=== PATIENT | male | born 1960 | race Caucasian/White ===

== ENCOUNTER 2023-12-04 16:03 | Inpatient (IN) | payer MEDICARE, OTHER ==
[~2023-12-04] VITALS: Ht 182.9 cm; Wt 92.5 kg
[2023-12-04 16:16] VITALS: BP 155/104; PULSE 121; RESP 26; TEMP 97.1; O2SAT 98
[2023-12-04] MEDS: NACL 0.9% 1,000 ML IV ONE (17:11)
[2023-12-04 17:23] LABS: BASOPHILS # (AUTO) 0.1 K/uL (0.00-0.22); BASOPHILS % (AUTO) 0.6 % (0.0-2.0); EOSINOPHILS # (AUTO) 0.1 K/uL (0-0.4); EOSINOPHILS % (AUTO) 0.6 % (0.0-4.0); HEMATOCRIT 49.9 % (36-52); HEMOGLOBIN 16.8 g/dL (12.0-18.0); LYMPHOCYTES # (AUTO) 2.5 K/uL (2.0-11.5); LYMPHOCYTES % (AUTO) 19.3 % (20.5-51.1); MEAN CORPUSCULAR HEMOGLOBIN 33 pg (27-31); MEAN CORPUSCULAR HGB CONC 34 g/dL (33-37); MEAN CORPUSCULAR VOLUME 97.2 fL (80-94); MONOCYTES # (AUTO) 1.2 K/uL (0.8-1.0); MONOCYTES % (AUTO) 9.2 % (1.7-9.3); NEUTROPHILS % (AUTO) 70.3 % (42.2-75.2); PLATELET COUNT (AUTO) 342 K/uL (140-450); RED BLOOD CELL COUNT(AUTO) 5.14 MIL/uL (4.20-6.10); RED CELL DISTRIBUTION WIDTH 13.8 % (11.6-13.7); WHITE BLOOD COUNT (AUTO) 12.8 K/uL (4.8-10.8)
[2023-12-04 17:36] LABS: CALCIUM 9.6 mg/dL (8.5-10.1); CARBON DIOXIDE 22.1 mmol/L (21-32); CREATININE 1.7 mg/dL (0.6-1.3); POTASSIUM 5.1 mmol/L (3.5-5.1)
[2023-12-04 17:49] LABS: LACTIC ACID 2.8 mmol/L (0.4-2.0)
[2023-12-04 17:52] LABS: MAGNESIUM 1.9 mg/dL (1.8-2.4); PHOSPHORUS 5.1 mg/dL (2.5-4.9); THYROID STIMULATING HORMONE 2.51 uIU/mL (0.34-3.74)
[2023-12-04 18:18] LABS: INR 1.34 (0.8-1.2); PARTIAL THROMBOPLASTIN TIME 23.9 secs (22-35.6); PROTHROMBIN TIME 13.9 secs (10.8-13.4)
[2023-12-04 18:39] LABS: FLU A ANTIGEN negative (NEGATIVE); FLU B ANTIGEN NEGATIVE (NEGATIVE)
[2023-12-04] MEDS: AZITHROMYCIN 500 MG in DEXTROSE 5% 250 ML IV ONE (20:45)
[2023-12-04] MEDS ORDERED: ACETAMINOPHEN 325 MG TAB PO PRN (21:45)
[2023-12-04] MEDS ORDERED: HYDROcodone/APAP 5/325 MG 1 TAB TAB PO PRN (21:45)
[2023-12-04] MEDS ORDERED: ONDANSETRON 4 MG/2 ML VIAL IVP PRN (21:45)
[2023-12-04] MEDS ORDERED: AZITHROMYCIN 500 MG INJ VIAL IV ONE (21:56)
[2023-12-04] MEDS ORDERED: cefTRIAXone 1,000 MG VIAL ONE (21:56)
[2023-12-04] MEDS: NACL 0.9% 1,000 ML IV SCH (22:22)
[2023-12-04] MEDS ORDERED: ALBUTEROL SULFATE/IPRATROPIU 3 ML SOL IH ONE (23:58)
[2023-12-05] VITALS (30 sets, daily range): BP systolic 99–131; BP diastolic 64–86; PULSE 59–126; RESP 13–29; TEMP 97.2–97.6; O2SAT 88–100
[2023-12-05] MEDS: NACL 0.9% 500 ML IV ONE
[2023-12-05] MEDS: ALBUTEROL SULFATE/IPRATROPIU 3 ML SOL IH ONE (00:03)
[2023-12-05] MEDS ORDERED: NOREPINEPHRINE 4 MG/4 ML VIAL IV ONE ×4 (00:09→07:21)
[2023-12-05] MEDS: LORazepam 2 MG/ML VIAL IVP STA (00:30)
[2023-12-05] MEDS ORDERED: FUROSEMIDE 20 MG/2 ML VIAL IVP ONE ×2 (00:34)
[2023-12-05] MEDS ORDERED: PROPOFOL 1000 MG/100 ML PREMIX 100 ML IV ONE (00:52)
[2023-12-05] MEDS ORDERED: PROPOFOL 1000 MG/100 ML PREMIX 100 ML IV PRN (01:00)
[2023-12-05 01:40] LABS: BASOPHILS # (AUTO) 0.1 K/uL (0.00-0.22); BASOPHILS % (AUTO) 0.3 % (0.0-2.0); EOSINOPHILS % (AUTO) 0.2 % (0.0-4.0); HEMATOCRIT 46.8 % (36-52); HEMOGLOBIN 15.1 g/dL (12.0-18.0); LYMPHOCYTES # (AUTO) 2.3 K/uL (2.0-11.5); LYMPHOCYTES % (AUTO) 12.2 % (20.5-51.1); MEAN CORPUSCULAR HEMOGLOBIN 32 pg (27-31); MEAN CORPUSCULAR HGB CONC 32 g/dL (33-37); MEAN CORPUSCULAR VOLUME 100.5 fL (80-94); MONOCYTES # (AUTO) 0.9 K/uL (0.8-1.0); MONOCYTES % (AUTO) 4.6 % (1.7-9.3); NEUTROPHILS # (AUTO) 15.6 K/uL (1.8-7.7); NEUTROPHILS % (AUTO) 82.7 % (42.2-75.2); PLATELET COUNT (AUTO) 233 K/uL (140-450); RED BLOOD CELL COUNT(AUTO) 4.65 MIL/uL (4.20-6.10); RED CELL DISTRIBUTION WIDTH 14.3 % (11.6-13.7); WHITE BLOOD COUNT (AUTO) 18.9 K/uL (4.8-10.8)
[2023-12-05 02:04] LABS: ALBUMIN 2.7 g/dL (3.4-5.0); ANION GAP 23.8 (8-16); CALCIUM 9.8 mg/dL (8.5-10.1); CARBON DIOXIDE 15.6 mmol/L (21-32); CREATININE 2.1 mg/dL (0.6-1.3); POTASSIUM 4.4 mmol/L (3.5-5.1); TOTAL BILIRUBIN 1.7 mg/dL (0.0-1.0); TOTAL PROTEIN, SERUM 7.2 g/dL (6.4-8.2)
[2023-12-05 02:12] LABS: INR 1.77 (0.8-1.2); PROTHROMBIN TIME 18.1 secs (10.8-13.4)
[2023-12-05 02:27] LABS: BLOOD GAS BASE EXCESS -14.5 mmol/L (-2.0-2.0); BLOOD GAS HCO3 12.7 mmol/L (22-26); BLOOD GAS O2 SAT% 97.9 % (92.0-98.5); BLOOD GAS PCO2 34.3 mmHg (35-45); BLOOD GAS PH 7.186 (7.35-7.45); BLOOD GAS PO2 127.5 mmHg (75-100)
[2023-12-05] MEDS ORDERED: DEXMEDETOMIDINE HCL 400 MCG in NACL 0.9% 96 ML IV PRN (02:40)
[2023-12-05] MEDS: ALBUTEROL SULFATE/IPRATROPIU 3 ML SOL IH SCH (02:42)
[2023-12-05] MEDS: DEXMEDETOMIDINE HCL 100 MCG/ML 2 ML VIAL IV ONE (02:45)
[2023-12-05] MEDS: methylPREDNISolone SS 40 MG/ML VIAL IVP SCH (05:00)
[2023-12-05 07:29] LABS: BASOPHILS % (AUTO) 0.2 % (0.0-2.0); HEMATOCRIT 43.9 % (36-52); HEMOGLOBIN 14.9 g/dL (12.0-18.0); LYMPHOCYTES # (AUTO) 0.9 K/uL (2.0-11.5); LYMPHOCYTES % (AUTO) 4.1 % (20.5-51.1); MEAN CORPUSCULAR HEMOGLOBIN 33 pg (27-31); MEAN CORPUSCULAR HGB CONC 34 g/dL (33-37); MEAN CORPUSCULAR VOLUME 96.9 fL (80-94); MONOCYTES # (AUTO) 1.6 K/uL (0.8-1.0); MONOCYTES % (AUTO) 7.5 % (1.7-9.3); NEUTROPHILS # (AUTO) 19.1 K/uL (1.8-7.7); NEUTROPHILS % (AUTO) 88.2 % (42.2-75.2); PLATELET COUNT (AUTO) 244 K/uL (140-450); RED BLOOD CELL COUNT(AUTO) 4.53 MIL/uL (4.20-6.10); RED CELL DISTRIBUTION WIDTH 13.9 % (11.6-13.7); WHITE BLOOD COUNT (AUTO) 21.6 K/uL (4.8-10.8)
[2023-12-05 08:05] LABS: ALBUMIN 2.9 g/dL (3.4-5.0); ANION GAP 19.3 (8-16); CALCIUM 8.9 mg/dL (8.5-10.1); CARBON DIOXIDE 18.3 mmol/L (21-32); CREATININE 2.1 mg/dL (0.6-1.3); POTASSIUM 4.6 mmol/L (3.5-5.1); TOTAL BILIRUBIN 1.8 mg/dL (0.0-1.0); TOTAL PROTEIN, SERUM 6.7 g/dL (6.4-8.2)
[2023-12-05] MEDS ORDERED: fentaNYL citrate 1 MG in NACL 0.9% 80 ML IV PRN (09:55)
[2023-12-05] MEDS: fentaNYL citrate 0.05 MG/ML VIAL ONE (10:25)
[2023-12-05] MEDS: fentaNYL citrate 1 MG in NACL 0.9% 80 ML IV PRN (11:35)
[2023-12-05] MEDS: ENOXAPARIN 40 MG/0.4 ML SYR SUBQ SCH (11:36)
[2023-12-05] MEDS: AZITHROMYCIN 500 MG in DEXTROSE 5% 250 ML IV SCH (11:37)
[2023-12-05 11:40] LABS: BLOOD GAS PCO2 29.4 mmHg (35-45); BLOOD GAS PH 7.372 (7.35-7.45)
[2023-12-05 11:41] LABS: BLOOD GAS PO2 374.8 mmHg (75-100)
[2023-12-05 11:42] LABS: BLOOD GAS HCO3 16.7 mmol/L (22-26)
[2023-12-05] MEDS: NOREPINEPHRINE 4 MG in DEXTROSE 5% 250 ML IV PRN (12:04)
[2023-12-05] MEDS: COMMUNICATION ORDER MC ONE (12:19)
[2023-12-05] MEDS: ECOTRIN 81 MG TABEC PO SCH (12:45)
[2023-12-05] MEDS: MIDAZOLAM MDV 50 MG in NACL 0.9% 40 ML IV PRN (14:33)
[2023-12-06] VITALS (32 sets, daily range): BP systolic 103–128; BP diastolic 66–88; PULSE 87–134; RESP 10–22; TEMP 97.2–98.4; O2SAT 96–100
[2023-12-06] MEDS: BLOOD GLUCOSE MONITORING 1 DEV DEV FS SCH
[2023-12-06] MEDS: NOREPINEPHRINE 4 MG in DEXTROSE 5% 250 ML IV PRN (01:28)
[2023-12-06 03:28] LABS: BILIRUBIN,URINE 1+ (NEGATIVE); BLOOD, URINE 3+ (NEGATIVE); COLOR,URINE YELLOW (YELLOW); LEUKOCYTE ESTERASE ,URINE NEGATIVE (NEGATIVE); NITRITE, URINE NEGATIVE (NEGATIVE); PH,URINE 5.5 (5.0-9.0); PROTEIN,URINE TRACE (NEGATIVE); UGLUCOSE NEGATIVE (NEGATIVE); UROBILINOGEN,URINE 0.2 EU/dL (0.2 - 1)
[2023-12-06 03:53] LABS: APPEARANCE,URINE CLOUDY (CLEAR)
[2023-12-06 03:54] LABS: BACTERIA,URINE 1+ /HPF (None Seen); ICTOTEST NEGATIVE (NEGATIVE); RBC,URINE 50-80 /HPF (0-5); WBC,URINE 0-5 /HPF (0-5)
[2023-12-06 03:55] LABS: FINE GRANULAR CASTS,URINE 0-1 /LPF (None Seen); SQUAMOUS EPITHELIAL CELL,UR 0-3 (FEW) /LPF (0-3 (FEW)); URINE AMORPHOUS URATE 1+ /HPF (None Seen)
[2023-12-06 06:34] LABS: HEMATOCRIT 41.3 % (36-52); HEMOGLOBIN 13.9 g/dL (12.0-18.0); LYMPHOCYTES # (AUTO) 0.8 K/uL (2.0-11.5); MEAN CORPUSCULAR HEMOGLOBIN 33 pg (27-31); MEAN CORPUSCULAR HGB CONC 34 g/dL (33-37); MEAN CORPUSCULAR VOLUME 96.5 fL (80-94); MONOCYTES # (AUTO) 0.6 K/uL (0.8-1.0); MONOCYTES % (AUTO) 3.7 % (1.7-9.3); NEUTROPHILS # (AUTO) 14.5 K/uL (1.8-7.7); NEUTROPHILS % (AUTO) 91.3 % (42.2-75.2); PLATELET COUNT (AUTO) 219 K/uL (140-450); RED BLOOD CELL COUNT(AUTO) 4.29 MIL/uL (4.20-6.10); RED CELL DISTRIBUTION WIDTH 13.6 % (11.6-13.7); WHITE BLOOD COUNT (AUTO) 15.9 K/uL (4.8-10.8)
[2023-12-06 06:43] LABS: ANION GAP 18.4 (8-16); CALCIUM 8.7 mg/dL (8.5-10.1); CARBON DIOXIDE 21.3 mmol/L (21-32); CREATININE 2.1 mg/dL (0.6-1.3); POTASSIUM 4.7 mmol/L (3.5-5.1)
[2023-12-06 12:19] LABS: BLOOD GAS O2 SAT% 99.5 % (92.0-98.5); BLOOD GAS PCO2 33.8 mmHg (35-45); BLOOD GAS PO2 173.5 mmHg (75-100)
[2023-12-06] MEDS: INSULIN LISPRO SLIDING SCALE 100 UNITS/ML VIAL SUBQ PRN (12:21)
[2023-12-06] MEDS: DOCUSATE 100 MG/10 ML UDC GT SCH (20:38)
[2023-12-07] VITALS (34 sets, daily range): BP systolic 104–126; BP diastolic 63–87; PULSE 89–120; RESP 8–23; TEMP 97.8–98.3; O2SAT 94–99
[2023-12-07 05:50] LABS: BASOPHILS % (AUTO) 0.1 % (0.0-2.0); HEMATOCRIT 41.3 % (36-52); LYMPHOCYTES # (AUTO) 0.6 K/uL (2.0-11.5); LYMPHOCYTES % (AUTO) 4.5 % (20.5-51.1); MEAN CORPUSCULAR HEMOGLOBIN 33 pg (27-31); MEAN CORPUSCULAR HGB CONC 34 g/dL (33-37); MEAN CORPUSCULAR VOLUME 96.2 fL (80-94); MONOCYTES # (AUTO) 0.6 K/uL (0.8-1.0); MONOCYTES % (AUTO) 4.5 % (1.7-9.3); NEUTROPHILS # (AUTO) 12.7 K/uL (1.8-7.7); NEUTROPHILS % (AUTO) 90.9 % (42.2-75.2); PLATELET COUNT (AUTO) 178 K/uL (140-450); RED BLOOD CELL COUNT(AUTO) 4.29 MIL/uL (4.20-6.10); RED CELL DISTRIBUTION WIDTH 14.2 % (11.6-13.7)
[2023-12-07 06:15] LABS: CALCIUM 8.8 mg/dL (8.5-10.1); CARBON DIOXIDE 23.5 mmol/L (21-32); CREATININE 2.1 mg/dL (0.6-1.3); POTASSIUM 4.5 mmol/L (3.5-5.1)
[2023-12-07] MEDS: ASPIRIN 81 MG TAB.CHEW GT SCH (08:37)
[2023-12-07] MEDS ORDERED: DEXMEDETOMIDINE HCL 400 MCG in NACL 0.9% 96 ML IV PRN (10:55)
[2023-12-07 11:16] LABS: BLOOD GAS BASE EXCESS -5.8 mmol/L (-2.0-2.0); BLOOD GAS PCO2 23.6 mmHg (35-45); BLOOD GAS PO2 125.3 mmHg (75-100)
[2023-12-07 11:17] LABS: BLOOD GAS O2 SAT% 98.8 % (92.0-98.5)
[2023-12-08] VITALS (18 sets, daily range): BP systolic 110–120; BP diastolic 67–82; PULSE 93–123; RESP 10–20; TEMP 97.8–98.6; O2SAT 16–100
[2023-12-08 05:53] LABS: BASOPHILS % (AUTO) 0.1 % (0.0-2.0); HEMATOCRIT 42.2 % (36-52); HEMOGLOBIN 14.2 g/dL (12.0-18.0); LYMPHOCYTES # (AUTO) 0.6 K/uL (2.0-11.5); LYMPHOCYTES % (AUTO) 4.2 % (20.5-51.1); MEAN CORPUSCULAR HEMOGLOBIN 33 pg (27-31); MEAN CORPUSCULAR HGB CONC 34 g/dL (33-37); MONOCYTES % (AUTO) 6.7 % (1.7-9.3); NEUTROPHILS # (AUTO) 12.7 K/uL (1.8-7.7); PLATELET COUNT (AUTO) 171 K/uL (140-450); RED BLOOD CELL COUNT(AUTO) 4.31 MIL/uL (4.20-6.10); RED CELL DISTRIBUTION WIDTH 13.9 % (11.6-13.7); WHITE BLOOD COUNT (AUTO) 14.3 K/uL (4.8-10.8)
[2023-12-08 06:41] LABS: ANION GAP 15.4 (8-16); CALCIUM 8.9 mg/dL (8.5-10.1); CARBON DIOXIDE 22.6 mmol/L (21-32); CREATININE 1.8 mg/dL (0.6-1.3)
[2023-12-08] MEDS: DOCUSATE 100 MG/10 ML UDC PO SCH (20:26)
[2023-12-09] VITALS: PULSE 121
[2023-12-09 04:00] VITALS: PULSE 119
[2023-12-09] MEDS: BLOOD GLUCOSE MONITORING 1 DEV DEV FS SCH (07:30)
[2023-12-09] MEDS: ASPIRIN 81 MG TAB.CHEW PO SCH (09:00)
[2023-12-10] MEDS ORDERED: ATORVASTATIN 20 MG TAB ONE (20:47)
== END 2023-12-09 11:15 | disposition left against medical advice (07) | DRG 208 ==
LOC: MED 16:03 → MMU 21:45 → MIC 12-05 06:34 → MTU 12-08 23:45
PROVIDERS: ADMIT Student in an Organized Health Care Education/Training Program; ATTEND Student in an Organized Health Care Education/Training Program
PROC: 5A1945Z Respiratory Ventilation, 24-96 Consecutive Hours (ICD-10-PCS; principal; 2023-12-05)
PROC: 0BH17EZ Insertion of Endotracheal Airway into Trachea, Via Natural or Artificial Opening (ICD-10-PCS; 2023-12-05)
PROC: 02HV33Z Insertion of Infusion Device into Superior Vena Cava, Percutaneous Approach (ICD-10-PCS; 2023-12-05)
PROC: B548ZZA Ultrasonography of Superior Vena Cava, Guidance (ICD-10-PCS; 2023-12-05)
PROC: 5A12012 Performance of Cardiac Output, Single, Manual (ICD-10-PCS; 2023-12-05)
PROC: 06HY33Z Insertion of Infusion Device into Lower Vein, Percutaneous Approach (ICD-10-PCS; 2023-12-05)
PROC: B54BZZA Ultrasonography of Right Lower Extremity Veins, Guidance (ICD-10-PCS; 2023-12-05)
DX: J18.9 Pneumonia, unspecified organism (principal); I21.4 Non-ST elevation (NSTEMI) myocardial infarction; I46.9 Cardiac arrest, cause unspecified; J96.01 Acute respiratory failure with hypoxia; R65.21 Severe sepsis with septic shock; N17.9 Acute kidney failure, unspecified; Z53.21 Procedure and treatment not carried out due to patient leaving prior to being seen by health care provider; Z20.822 Contact with and (suspected) exposure to COVID-19; I11.0 Hypertensive heart disease with heart failure; I50.9 Heart failure, unspecified; J45.909 Unspecified asthma, uncomplicated; J47.9 Bronchiectasis, uncomplicated; E66.9 Obesity, unspecified; Z68.27 Body mass index [BMI] 27.0-27.9, adult
CPT/HCPCS: 36415; 36600; 70450; 71045; 71275; 74018; 76770; 80048; 80053; 81001; 82803; 82948; 83605; 83735; 83880; 84100; 84443; 84484; 85025; 85379; 85610; 85730; 87040; 87081; 87086; 92526; 93005; 94003; 94640; 96361; 96374; 96375; 99285; J0456; J0696; J1644; J1650; J1815; J1940; J2060; J2250; J2704; J2920; J3010; J3490; J7060; Q0092; Q9967

== ENCOUNTER 2023-12-09 17:15 | Inpatient (IN) | payer MEDICARE ==
[~2023-12-09] VITALS: Ht 185.4 cm; Wt 136.1 kg
[2023-12-09 17:46] VITALS: BP 126/83; PULSE 121; RESP 22; TEMP 98.1; O2SAT 96
[2023-12-09 19:13] LABS: BASOPHILS % (AUTO) 0.1 % (0.0-2.0); HEMATOCRIT 46.3 % (36-52); HEMOGLOBIN 15.7 g/dL (12.0-18.0); LYMPHOCYTES # (AUTO) 0.9 K/uL (2.0-11.5); LYMPHOCYTES % (AUTO) 5.6 % (20.5-51.1); MEAN CORPUSCULAR HEMOGLOBIN 33 pg (27-31); MEAN CORPUSCULAR HGB CONC 34 g/dL (33-37); MEAN CORPUSCULAR VOLUME 97.1 fL (80-94); MONOCYTES # (AUTO) 1.2 K/uL (0.8-1.0); MONOCYTES % (AUTO) 7.3 % (1.7-9.3); NEUTROPHILS # (AUTO) 14.5 K/uL (1.8-7.7); PLATELET COUNT (AUTO) 208 K/uL (140-450); RED BLOOD CELL COUNT(AUTO) 4.76 MIL/uL (4.20-6.10); RED CELL DISTRIBUTION WIDTH 14.1 % (11.6-13.7); WHITE BLOOD COUNT (AUTO) 16.7 K/uL (4.8-10.8)
[2023-12-09 19:36] LABS: LACTIC ACID 2.3 mmol/L (0.4-2.0)
[2023-12-09 19:37] LABS: ANION GAP 17.9 (8-16); CALCIUM 8.8 mg/dL (8.5-10.1); CARBON DIOXIDE 18.7 mmol/L (21-32); CREATININE 1.6 mg/dL (0.6-1.3); POTASSIUM 5.6 mmol/L (3.5-5.1)
[2023-12-09 19:43] LABS: ALANINE AMINOTRANSFERASE 525 U/L (12-78); ALBUMIN 2.7 g/dL (3.4-5.0); ALKALINE PHOSPHATASE 86 U/L (50-136); ASPARTATE AMINOTRANSFERASE 214 U/L (15-37); BILIRUBIN,DIRECT 1.1 mg/dL (0.0-0.3); TOTAL BILIRUBIN 1.8 mg/dL (0.0-1.0); TOTAL PROTEIN, SERUM 7.2 g/dL (6.4-8.2)
[2023-12-09] MEDS ORDERED: CEFEPIME 1,000 MG VIAL ONE (20:32)
[2023-12-09] MEDS: DEXTROSE 50% 50 ML SYR IVP ONE (20:53)
[2023-12-09] MEDS: CEFEPIME 1,000 MG in DEXTROSE 5% 50 ML IV ONE (20:56)
[2023-12-09] MEDS: INSULIN REGULAR, HUMAN 100 UNIT/ML VIAL IVP ONE (20:56)
[2023-12-09] MEDS ORDERED: FUROSEMIDE 40 MG/4 ML VIAL IVP ONE (21:10)
[2023-12-09] MEDS: carvediloL 3.125 MG TAB PO SCH (21:51)
[2023-12-09] MEDS: SODIUM POLYSTYRENE 15 GM/60 ML UDBTL PO ONE (21:52)
[2023-12-09] MEDS ORDERED: MORPHINE SULFATE 2 MG/ML SYR IVP PRN (22:20)
[2023-12-09] MEDS ORDERED: ACETAMINOPHEN 325 MG TAB PO PRN (22:20)
[2023-12-09] MEDS ORDERED: MELATONIN 3 MG TAB PO PRN (22:20)
[2023-12-09] MEDS ORDERED: HYDROcodone/APAP 5/325 MG 1 TAB TAB PO PRN (22:20)
[2023-12-09] MEDS ORDERED: MAG SULF 2000 MG/WATER PREMIX 50 ML IV PRN (22:20)
[2023-12-09] MEDS ORDERED: POTASSIUM CHLORIDE 10 MEQ TABER PO PRN (22:20)
[2023-12-09] MEDS ORDERED: ONDANSETRON 4 MG/2 ML VIAL IVP PRN (22:20)
[2023-12-09] MEDS ORDERED: POLYETHYLENE GLYCOL 17 GM/PKT PO PRN (22:20)
[2023-12-09] MEDS: FUROSEMIDE 20 MG/2 ML VIAL IVP ONE (22:24)
[2023-12-10] MEDS ORDERED: METOPROLOL 5 MG/5 ML VIAL IVP ONE (04:00)
[2023-12-10] MEDS ORDERED: METOPROLOL 25 MG TAB PO SCH (04:30)
[2023-12-10 07:48] LABS: ALBUMIN 2.5 g/dL (3.4-5.0); ANION GAP 16.6 (8-16); CALCIUM 8.5 mg/dL (8.5-10.1); CREATININE 1.7 mg/dL (0.6-1.3); MAGNESIUM 1.8 mg/dL (1.8-2.4); PHOSPHORUS 4.1 mg/dL (2.5-4.9); POTASSIUM 4.6 mmol/L (3.5-5.1); TOTAL BILIRUBIN 1.7 mg/dL (0.0-1.0); TOTAL PROTEIN, SERUM 6.1 g/dL (6.4-8.2)
[2023-12-10 07:55] LABS: BASOPHILS % (AUTO) 0.1 % (0.0-2.0); HEMATOCRIT 45.1 % (36-52); LYMPHOCYTES % (AUTO) 6.9 % (20.5-51.1); MEAN CORPUSCULAR HEMOGLOBIN 33 pg (27-31); MEAN CORPUSCULAR HGB CONC 33 g/dL (33-37); MEAN CORPUSCULAR VOLUME 97.5 fL (80-94); MONOCYTES # (AUTO) 0.8 K/uL (0.8-1.0); MONOCYTES % (AUTO) 5.7 % (1.7-9.3); NEUTROPHILS # (AUTO) 12.7 K/uL (1.8-7.7); NEUTROPHILS % (AUTO) 87.3 % (42.2-75.2); PLATELET COUNT (AUTO) 202 K/uL (140-450); RED BLOOD CELL COUNT(AUTO) 4.63 MIL/uL (4.20-6.10); RED CELL DISTRIBUTION WIDTH 13.8 % (11.6-13.7); WHITE BLOOD COUNT (AUTO) 14.6 K/uL (4.8-10.8)
[2023-12-10] MEDS: FUROSEMIDE 40 MG/4 ML VIAL IVP SCH (10:57)
[2023-12-10] MEDS: ASPIRIN 81 MG TAB.CHEW PO SCH (10:58)
[2023-12-10] MEDS: carvediloL 6.25 MG TAB PO SCH (10:58)
[2023-12-10 11:44] VITALS: PULSE 141; RESP 18; O2SAT 94
[2023-12-10 12:00] VITALS: BP 98/76; PULSE 112; PULSE 85; RESP 18; TEMP 98.3; O2SAT 95
[2023-12-10 14:40] LABS: APPEARANCE,URINE CLEAR (CLEAR); BILIRUBIN,URINE NEGATIVE (NEGATIVE); BLOOD, URINE TRACE-I (NEGATIVE); COLOR,URINE YELLOW (YELLOW); LEUKOCYTE ESTERASE ,URINE NEGATIVE (NEGATIVE); NITRITE, URINE NEGATIVE (NEGATIVE); PROTEIN,URINE NEGATIVE (NEGATIVE); UGLUCOSE NEGATIVE (NEGATIVE); UROBILINOGEN,URINE 0.2 EU/dL (0.2 - 1)
[2023-12-10 14:47] LABS: AMPHETAMINE, URINE NEGATIVE ng/ml (NEG <=1000); BARBITURATE, URINE NEGATIVE ng/ml (NEG <=200); BENZODIAZEPINE, URINE NEGATIVE ng/mL (NEG <=200); CANNABINOID, URINE POSITIVE ng/mL (NEG <=50); COCAINE, URINE NEGATIVE ng/mL (NEG <=300)
[2023-12-10 14:48] LABS: OPIATE, URINE NEGATIVE ng/mL (NEG <=2000); PHENCYCLIDINE SCREEN,URINE NEGATIVE ng/mL (NEG <=25)
[2023-12-10 16:00] VITALS: BP 102/71; PULSE 102; PULSE 87; RESP 20; TEMP 97.4; O2SAT 96
[2023-12-10 20:00] VITALS: BP 92/72; PULSE 100; PULSE 101; RESP 20; TEMP 97.5; O2SAT 97
[2023-12-10] MEDS: ATORVASTATIN 20 MG TAB PO SCH (20:53)
[2023-12-11] VITALS: BP 110/73; PULSE 90; PULSE 97; RESP 18; TEMP 98; O2SAT 95
[2023-12-11 04:00] VITALS: BP 95/59; PULSE 107; PULSE 94; RESP 18; TEMP 97.1; O2SAT 95
[2023-12-11 07:19] LABS: ALBUMIN 2.4 g/dL (3.4-5.0); ANION GAP 11.8 (8-16); CALCIUM 8.3 mg/dL (8.5-10.1); CARBON DIOXIDE 27.8 mmol/L (21-32); CREATININE 1.8 mg/dL (0.6-1.3); MAGNESIUM 1.9 mg/dL (1.8-2.4); PHOSPHORUS 3.9 mg/dL (2.5-4.9); POTASSIUM 4.6 mmol/L (3.5-5.1); TOTAL BILIRUBIN 1.3 mg/dL (0.0-1.0); TOTAL PROTEIN, SERUM 6.5 g/dL (6.4-8.2)
[2023-12-11 08:00] VITALS: BP 119/83; PULSE 52; RESP 18; RESP 20; TEMP 97.5; O2SAT 100; O2SAT 97
[2023-12-11 08:05] LABS: BASOPHILS % (AUTO) 0.1 % (0.0-2.0); EOSINOPHILS % (AUTO) 0.1 % (0.0-4.0); HEMATOCRIT 45.3 % (36-52); HEMOGLOBIN 15.1 g/dL (12.0-18.0); LYMPHOCYTES # (AUTO) 1.4 K/uL (2.0-11.5); LYMPHOCYTES % (AUTO) 8.3 % (20.5-51.1); MEAN CORPUSCULAR HEMOGLOBIN 32 pg (27-31); MEAN CORPUSCULAR HGB CONC 33 g/dL (33-37); MEAN CORPUSCULAR VOLUME 97.4 fL (80-94); MONOCYTES % (AUTO) 6.2 % (1.7-9.3); NEUTROPHILS # (AUTO) 14.2 K/uL (1.8-7.7); NEUTROPHILS % (AUTO) 85.3 % (42.2-75.2); PLATELET COUNT (AUTO) 217 K/uL (140-450); RED BLOOD CELL COUNT(AUTO) 4.65 MIL/uL (4.20-6.10); RED CELL DISTRIBUTION WIDTH 13.7 % (11.6-13.7); WHITE BLOOD COUNT (AUTO) 16.7 K/uL (4.8-10.8)
[2023-12-11] MEDS: AZITHROMYCIN 250 MG TAB PO SCH (09:51)
[2023-12-11 12:00] VITALS: BP 113/90; PULSE 73; PULSE 98; RESP 18; TEMP 97.8; O2SAT 100
[2023-12-11 16:00] VITALS: BP 102/74; PULSE 93; RESP 18; TEMP 97.3; O2SAT 95
[2023-12-11 20:00] VITALS: BP 115/75; PULSE 109; PULSE 110; RESP 18; TEMP 97.1; O2SAT 98
[2023-12-11] MEDS: carvediloL 3.125 MG TAB PO SCH (20:24)
[2023-12-11] MEDS: APIXABAN 2.5 MG TAB PO SCH (20:25)
[2023-12-12] VITALS: BP 112/77; PULSE 104; PULSE 105; RESP 18; TEMP 98; O2SAT 95
[2023-12-12 04:00] VITALS: BP 107/75; PULSE 93; RESP 18; TEMP 97.7; O2SAT 95
[2023-12-12 05:08] VITALS: PULSE 95
[2023-12-12 07:01] LABS: BASOPHILS % (AUTO) 0.2 % (0.0-2.0); EOSINOPHILS # (AUTO) 0.1 K/uL (0-0.4); EOSINOPHILS % (AUTO) 0.6 % (0.0-4.0); HEMATOCRIT 45.9 % (36-52); HEMOGLOBIN 15.5 g/dL (12.0-18.0); LYMPHOCYTES % (AUTO) 12.3 % (20.5-51.1); MEAN CORPUSCULAR HEMOGLOBIN 33 pg (27-31); MEAN CORPUSCULAR HGB CONC 34 g/dL (33-37); MEAN CORPUSCULAR VOLUME 97.5 fL (80-94); MONOCYTES # (AUTO) 1.1 K/uL (0.8-1.0); MONOCYTES % (AUTO) 6.7 % (1.7-9.3); NEUTROPHILS # (AUTO) 12.8 K/uL (1.8-7.7); NEUTROPHILS % (AUTO) 80.2 % (42.2-75.2); PLATELET COUNT (AUTO) 224 K/uL (140-450); RED BLOOD CELL COUNT(AUTO) 4.71 MIL/uL (4.20-6.10); RED CELL DISTRIBUTION WIDTH 13.8 % (11.6-13.7)
[2023-12-12 08:00] VITALS: BP 123/75; PULSE 107; PULSE 98; RESP 19; TEMP 96.5; O2SAT 96
[2023-12-12 08:24] LABS: ANION GAP 12.9 (8-16); CARBON DIOXIDE 28.3 mmol/L (21-32); CREATININE 1.7 mg/dL (0.6-1.3); MAGNESIUM 1.9 mg/dL (1.8-2.4); PHOSPHORUS 3.4 mg/dL (2.5-4.9); POTASSIUM 4.2 mmol/L (3.5-5.1); TOTAL BILIRUBIN 1.4 mg/dL (0.0-1.0); TOTAL PROTEIN, SERUM 6.8 g/dL (6.4-8.2)
[2023-12-12 08:59] LABS: ALBUMIN 2.6 g/dL (3.4-5.0)
[2023-12-12 09:30] VITALS: PULSE 107; RESP 19; O2SAT 96
[2023-12-12] MEDS: FUROSEMIDE 20 MG/2 ML VIAL IVP SCH (09:40)
[2023-12-12 12:00] VITALS: BP 131/78; PULSE 88; PULSE 98; RESP 18; TEMP 97.3; O2SAT 96
[2023-12-12] MEDS ORDERED: VIB100 PO (16:13)
[2023-12-12] MEDS ORDERED: ASPI81CT95 PO (16:13)
[2023-12-12] MEDS ORDERED: AMIO200T10 PO (16:13)
[2023-12-12] MEDS ORDERED: ATOR20TA40 PO (16:13)
[2023-12-12] MEDS ORDERED: CARV6.252 PO (16:13)
[2023-12-12] MEDS ORDERED: FURO40TA9 PO (16:13)
[2023-12-12] MEDS ORDERED: APIX2.5 PO (16:13)
[2023-12-12] MEDS: AMIODARONE 200 MG TAB PO SCH (16:37)
[2023-12-12] MEDS ORDERED: EMPA10TA PO (16:58)
[2023-12-12] MEDS ORDERED: DOXYCYCLINE 100 MG CAP PO SCH (21:00)
[2023-12-12] MEDS ORDERED: carvediloL 6.25 MG TAB PO SCH (21:00)
[2023-12-13] MEDS ORDERED: FUROSEMIDE 40 MG TAB PO SCH (09:00)
== END 2023-12-12 16:50 | disposition home or self-care (01) | DRG 871 ==
LOC: MED 17:15 → MTU 21:13
PROVIDERS: ADMIT Family Medicine; ATTEND Family Medicine
DX: A41.9 Sepsis, unspecified organism (principal); I50.23 Acute on chronic systolic (congestive) heart failure; J96.01 Acute respiratory failure with hypoxia; J18.9 Pneumonia, unspecified organism; N17.0 Acute kidney failure with tubular necrosis; I42.9 Cardiomyopathy, unspecified; I48.92 Unspecified atrial flutter; J47.9 Bronchiectasis, uncomplicated; E87.5 Hyperkalemia; I48.91 Unspecified atrial fibrillation
CPT/HCPCS: 36415; 71045; 76705; 80048; 80053; 80076; 80305; 81003; 83036; 83605; 83735; 83880; 84100; 84132; 84484; 85025; 87040; 87081; 87086; 93005; 96365; 96375; 97116; 97163-GP; 99291; J0692; J0696; J1644; J1815; J1940; J7060; Q0092